=== PATIENT | female | born 1990 | race Caucasian/White ===

== ENCOUNTER → 2022-10-13 | Outpatient (CLI) | payer OTHER, SELFPAY ==
--- NOTE | 2022-10-13 12:02 | RAD_ITS ---
INDICATION: Sprain of ligaments of thoracic spine, initial enc EXAMINATION/TECHNIQUE: X-RAY - XR Spine Thoracic 3 Views: 3 view thoracic spine with swimmer view. COMPARISON: FINDINGS: VERTEBRAE: 12 rib-bearing thoracic type vertebra with diminutive 12th ribs. No fracture or acute compression deformity. Mild multilevel chronic vertebral height loss in the mid and lower thoracic spine. Mild endplate osteophyte formation No spondylolisthesis. Preservation of the normal thoracic kyphosis. No significant facet arthropathy. DISCS: Mild disc height loss in the lower thoracic spine. INCLUDED CHEST/ABDOMEN: No acute abnormalities. RAD/Thoracic Spine 2 Views IMPRESSION: No evidence of thoracic spinal fracture or spondylolisthesis. Mild spondylosis. Electronically Signed: Shaji Toledo MD at 5:31 EDT ,
== END | disposition home or self-care (01) ==
PROVIDERS: Referring Provider Chiropractor; Visit Provider Chiropractor
DX: S23.3XXA Sprain of ligaments of thoracic spine, initial encounter (principal)
CPT/HCPCS: 72070